=== PATIENT | female | born 1995 | race Caucasian/White ===

== ENCOUNTER 2017-08-16 18:23 | Emergency (ER) | payer OTHER ==
[~2017-08-16] VITALS: Ht 170.2 cm; Wt 63.5 kg
[2017-08-16] MEDS ORDERED: ACETAMINOPHEN 500MG TABLET PO ONE (19:45)
[2017-08-16 20:18] VITALS: BP 123/56
== END 2017-08-16 20:21 | disposition home or self-care (01) ==
LOC: ER 18:23
DX: S70.02XA Contusion of left hip, initial encounter (principal); W22.12XA Striking against or struck by front passenger side automobile airbag, initial encounter; V49.59XA Passenger injured in collision with other motor vehicles in traffic accident, initial encounter; Y93.89 Activity, other specified; Y92.410 Unspecified street and highway as the place of occurrence of the external cause; F17.210 Nicotine dependence, cigarettes, uncomplicated
CPT/HCPCS: 99283